=== PATIENT | female | born 1950 | race Caucasian/White ===

== ENCOUNTER 2019-11-09 09:38 | Inpatient (IN) ==
[2019-11-09] MEDS ORDERED: SODIUM CHLORIDE 0.9% 1,000 ML IV STA (10:10)
[2019-11-09 10:46] LABS: Basophils % 0.3 % (0.0-0.8); Hematocrit 41.4 VOL% (35.7-47.0); Immature Granulocytes % 2.1 %; Immature Granulocytes Absolute 0.22 #; Lymphocytes # 1.4 10*3/uL (1.4-4.0); Lymphocytes % 13.2 % (21.3-54.2); Mean Corpuscular HGB Conc 33.8 GM/DL (32-36); Mean Corpuscular Volume 90.8 FL (87-102); Monocytes % 5.8 % (1.7-12.7); Neutrophils % 78.6 % (38.7-73.9); Platelet Count 220 T/CUMM (130-400); Red Blood Count 4.56 MC/CUMM (3.8-5.5); White Blood Count 10.4 T/CUMM (4-12)
[2019-11-09 10:54] LABS: PT Patient Result 10.7 SECS (9.6-12.2); Partial Thromboplastin Time 25.9 SECS (20.8-36.0)
[2019-11-09] MEDS ORDERED: ALBUTEROL 2.5 MG/3 ML NEB RESP TX STA (11:05)
[2019-11-09 11:10] LABS: Albumin 2.8 G/DL (3.4-5.0); Bilirubin,Total 1.2 MG/DL (0.2-1.0); Calcium 8.1 MG/DL (8.5-10.1); Osmolality,Calculated 277.8 MOS/KG (273-304); Total Protein 6.6 G/DL (6.4-8.3)
[2019-11-09 12:15] LABS: Amorphous Crystals,Urine Few /HPF (Few); Apearance,Urine Slightly Hazy (Clear); Bacteria,Urine Occasional /HPF (Few); Bilirubin,Urine Negative (Negative); Blood, Urine Small mg/dL (Negative); Glucose,Urine (UA) Negative (Negative); Ketones,Urine Negative (Negative); Mucus,Urine Few /LPF (Occasional); Nitrite,Urine Positive (Negative); Protein,Urine 30 MG/DL; RBC,Urine 1 /HPF (0-4); Urine Color Amber (Yellow); WBC,Urine 8 /HPF (0-6)
[2019-11-09] MEDS ORDERED: ONDANSETRON 4 MG/2 ML VIAL IV PRN (12:53)
[2019-11-09] MEDS ORDERED: ACETAMINOPHEN 325 MG TABLET PO PRN (12:53)
[2019-11-09] MEDS ORDERED: PROMETHAZINE 25 MG/1 ML VIAL IM PRN (12:53)
[2019-11-09] MEDS: SODIUM CHLORIDE 0.9% 1,000 ML IV SCH (14:04)
[2019-11-09] MEDS: GABAPENTIN 300 MG CAPSULE PO SCH ×2 (15:51→21:42)
[2019-11-09] MEDS: DEXAMETHASONE 4 MG TABLET PO SCH (21:43)
[2019-11-09] MEDS: APIXABAN 5 MG TABLET PO SCH (21:43)
[2019-11-10] MEDS: SODIUM CHLORIDE 0.9% 1,000 ML IV SCH ×2 (03:30→16:46)
[2019-11-10] MEDS: LEVOTHYROXINE 100 MCG TABLET PO SCH (06:25)
[2019-11-10] MEDS: APIXABAN 5 MG TABLET PO SCH ×2 (08:50→21:15)
[2019-11-10] MEDS: POTASSIUM CHLORIDE 20 MEQ TABLET PO SCH (08:50)
[2019-11-10] MEDS: PANTOPRAZOLE 40 MG VIAL IV SCH (08:50)
[2019-11-10] MEDS: GABAPENTIN 300 MG CAPSULE PO SCH ×3 (08:50→21:14)
[2019-11-10] MEDS: DEXAMETHASONE 4 MG TABLET PO SCH ×2 (08:50→21:14)
[2019-11-10] MEDS: ESCITALOPRAM 10 MG TABLET PO SCH (08:50)
[2019-11-10] MEDS ORDERED: cefTRIAXone 1,000 MG in SYRINGE 1 EACH IV SCH ×2 (11:00→15:00)
[2019-11-11] MEDS: SODIUM CHLORIDE 0.9% 1,000 ML IV SCH (04:45)
[2019-11-11] MEDS: LEVOTHYROXINE 100 MCG TABLET PO SCH (06:31)
[2019-11-11 08:31] VITALS: BP 115/60
[2019-11-11] MEDS: DEXAMETHASONE 4 MG TABLET PO SCH (09:48)
[2019-11-11] MEDS: ESCITALOPRAM 10 MG TABLET PO SCH (09:48)
[2019-11-11] MEDS: APIXABAN 5 MG TABLET PO SCH (09:48)
[2019-11-11] MEDS: GABAPENTIN 300 MG CAPSULE PO SCH (09:48)
[2019-11-11] MEDS: POTASSIUM CHLORIDE 20 MEQ TABLET PO SCH (09:48)
[2019-11-11] MEDS: PANTOPRAZOLE 40 MG VIAL IV SCH (10:48)
== END 2019-11-11 13:30 | disposition hospice, home (50) | DRG 54 ==
LOC: EDUNIT# → EDBD → N.ED 09:38 → N.EDINP 11:10 → N.4E 12:29
PROVIDERS: ADMIT Internal Medicine; ATTEND Internal Medicine